=== PATIENT | male | born 1990 | race Caucasian/White ===

== ENCOUNTER 2020-03-13 16:56 | Emergency (ER) | payer OTHER, SELFPAY ==
[2020-03-13 17:13] VITALS: BP 136/95; PULSE 74; RESP 20; TEMP 36.2; O2SAT 100; BMI 24.3
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
[2020-03-13 17:33] VITALS: BP 136/95; PULSE 74; RESP 20; TEMP 36.2; O2SAT 100
== END 2020-03-13 17:40 | disposition home or self-care (01) ==
LOC: ER 17:01 → UTC 17:02
PROVIDERS: Emergency Provider Nurse Practitioner Family; PCP Internal Medicine Adolescent Medicine
DX: T22.10XA Burn of first degree of shoulder and upper limb, except wrist and hand, unspecified site, initial encounter (principal); Y27.2XXA Contact with hot fluids, undetermined intent, initial encounter; Y92.89 Other specified places as the place of occurrence of the external cause; F17.210 Nicotine dependence, cigarettes, uncomplicated
CPT/HCPCS: 99201

== ENCOUNTER 2024-02-10 22:37 | Emergency (ER) | payer OTHER, SELFPAY ==
[2024-02-10 22:46] VITALS: BP 146/91; PULSE 84; RESP 20; TEMP 36.6; O2SAT 100; BMI 25.7
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
[2024-02-10] MEDS: ONDANSETRON 4MG ODT 4 MG SL (23:10)
[2024-02-10] MEDS: ACETAMINOPHEN 500MG TAB 1000 MG PO (23:10)
[2024-02-10] MEDS: AMOXICILLIN/CLAVULANATE POTASSIUM 875/125MG TABLET 1 EACH PO (23:10)
[2024-02-10] MEDS: NAPROXEN 500MG TABLET 500 MG PO (23:11)
[2024-02-10 23:21] VITALS: BP 127/95; PULSE 75; RESP 18; TEMP 36.6; O2SAT 100
== END 2024-02-10 23:23 | disposition home or self-care (01) ==
PROVIDERS: Emergency Provider Emergency Medicine; PCP Internal Medicine Adolescent Medicine
DX: K08.89 Other specified disorders of teeth and supporting structures (principal)
CPT/HCPCS: 99283